=== PATIENT | female | born 1965 ===

== ENCOUNTER 2018-03-30 07:04 | Day surgery (SDC) | payer BC, OTHER ==
[2018-03-29 15:07] VITALS: BMI 21.2
[2018-03-30] MEDS ORDERED: LIDOCAINE HCL/PF 2% SDV 5ML VIAL ONE (10:22)
[2018-03-30] MEDS ORDERED: MIDAZOLAM HCL 2 MG/2 ML SINGLE DOSE VIAL ONE (10:22)
[2018-03-30] MEDS ORDERED: PROPOFOL 20 ML ONE ×2 (10:22→11:14)
[2018-03-30] MEDS ORDERED: DEXAMETHASONE SOD PHOSPHATE 4 MG/1 ML VIAL ONE (10:22)
[2018-03-30] MEDS ORDERED: ceFAZolin SODIUM 1 GM VIAL ONE (10:35)
[2018-03-30] MEDS ORDERED: SODIUM CHLORIDE 0.9% P/F 10 ML VIAL IJ ONE (10:35)
[2018-03-30] MEDS ORDERED: LIDOCAINE HCL 1%, 10 MG/ML (20ML VIAL) ONE (10:39)
[2018-03-30] MEDS ORDERED: ONDANSETRON 4 MG/2 ML VIAL IVPUSH PRN (10:44)
[2018-03-30] MEDS ORDERED: oxyCODONE HCL 5 MG TABLET PO PRN (10:44)
[2018-03-30] MEDS ORDERED: LACTATED RINGERS SOLUTION 1,000 ML IV SCH (10:45)
[2018-03-30] MEDS ORDERED: ceFAZolin SODIUM 1 GM VIAL IVPB ONE (10:57)
[2018-03-30] MEDS ORDERED: LIDOCAINE HCL 1%, 10 MG/ML (50 mL VIAL) IJ ONE (11:23)
--- NOTE | 2018-03-30 12:15 | OP ---
DATE OF OPERATION: 03/30/2018 PREOPERATIVE DIAGNOSIS: Left breast atypia. POSTOPERATIVE DIAGNOSIS: Left breast atypia. PROCEDURE: Left breast wire-localized lumpectomy. SURGEON: Misty Carter MD ANESTHESIA: Local, IV sedation. ESTIMATED BLOOD LOSS: Minimal. COMPLICATIONS: None. This was a sterile procedure. INDICATIONS FOR PROCEDURE: Patient had a needle biopsy of the outer left breast that showed atypical ductal hyperplasia. My recommendation was excision to make sure there was no further upgrade in the lesion. The procedure was discussed. with all the questions answered. PROCEDURE IN DETAIL: Patient brought to [facility] in [place]. Taken to Radiology where a wire was used to localize the clip in the outer left breast and then brought to the operating room. After IV sedation and IV antibiotics the left breast was prepped and draped in the usual sterile fashion. An area in the outer left breast was anesthetized with 1% lidocaine, no epinephrine. A radial incision was made in the left 3 o'clock location. The wire was used as a guide to get down to the area of interest. This was excised en bloc, tagged with a long stitch lateral, short stitch superior, sent for specimen radiograph. Hemostasis assured with electrocautery. Specimen radiograph showed the clip to be intact within the specimen. The wire had been removed by me at the time of the excision of the lumpectomy. Once hemostasis assured the parenchyma approximated with interrupted 2-0 Vicryl. Skin approximated with interrupted 3-0 Vicryl and running 4-0 Prolene. A sterile dressing with Tegaderm, 4 x 4's applied. She tolerated procedure well, was taken to recovery in good condition. MISTY CARTER M.D. [id number]
[2018-03-30 13:11] VITALS: TEMP 97.7
[2018-03-30 13:47] VITALS: BP 104/72; PULSE 72
--- NOTE | 2018-04-04 11:39 | PATH ---
Surgical Pathology Report Patient Name: DAY ALEJANDRE [facility]. Rec. #: [id number] /Age/Gender: 1965 (Age: 52) / F Account: [id number] Location: [facility] SURGICAL Taken: 03/30/2018 Received: 03/30/2018 Reported: 04/04/2018 Physicians: Misty Aguirre M.D. Specimen(s) Received LEFT BREAST LUMPECTOMY Clinical History Left breast ADH on needle biopsy Final Diagnosis Breast, left, lumpectomy: Breast tissue showing focal atypical lobular hyperplasia (ALH) in a background of columnar cell change and fibrocystic changes including cystic apocrine metaplasia, usual ductal hyperplasia (UDH) and stromal fibrosis. Prior biopsy site changes are present. Electronically Signed Sarah Marinelli M.D. Gross Description Received fresh on an AccuGrid, labeled "left breast lumpectomy," is a 4.0 x 3.1 x 1.4 cm. daniels-yellow, irregular, portion of fibroadipose tissue . There is no needle localization wire present. There is a short suture marking the superior aspect and a long suture marking the lateral aspect, per the surgeon. There is no skin present. The specimen is inked as follows: superior and lateral blue; inferior green; medial yellow; anterior red; deep black. The specimen is serially sectioned from medial to lateral. Sectioning reveals diffuse dense, white fibrous tissue. No definitive mass is identified. The specimen is entirely and sequentially submitted in 6 cassettes with the medial margin in cassette 1 and lateral margin in cassette 6. Total formalin fixation time: Approximately 6 hours. /03/30/2018 [facility]/03/30/2018
== END 2018-03-30 13:49 | disposition home or self-care (01) ==
LOC: JASU-SURG 07:04
PROVIDERS: ATTEND Surgery
PROC: 0HBU0ZZ Excision of Left Breast, Open Approach (ICD-10-PCS; principal; 2018-03-30 10:00)
DX: N60.11 Diffuse cystic mastopathy of right breast (principal); N60.82 Other benign mammary dysplasias of left breast
CPT/HCPCS: 19281; 84703; 94760